=== PATIENT | female | born 1990 | race African-American/Black ===

== ENCOUNTER 2017-03-09 08:45 | Emergency (ER) | payer MEDICAID ==
[~2017-03-09] VITALS: Ht 160 cm; Wt 95.0 kg
[~2017-03-09 08:45] MED LIST: AMLO10 PO; ENOX40P SQ; ESCI20TA PO; LISI10 PO
[2017-03-09 08:46] VITALS: BP 165/82; PULSE 96; RESP 20; TEMP 98.9; O2SAT 99
[2017-03-09 09:01] VITALS: BP 143/88; PULSE 95; RESP 16; TEMP 98.9; O2SAT 98
--- NOTE | 2017-03-09 09:54 | PD ---
HPI Chief Complaint: GI Complaint Time Seen by Provider: 09:40 Travel History International Travel<30 days: No Contact w/Intl Traveler<30days: No Traveled to known affect area: No History of Present Illness HPI This is a 26-year-old female who 6 months , who presents today with complaints of migraine exacerbation with associated nausea. The patient denies any abdominal pain, pressure. The patient denies any dysuria, urgency, frequency. Patient states she has frequent migraine headaches. She states that she is not taking anything for the migraine because she is . She denies this being the worst headache of her life. She states that this is like her previous migraines. There is no photophobia. There is no thunderclap headache. There is no other associated symptoms other than the nausea. PFSH Past Medical History Anxiety: Yes Depression: Yes Cardiovascular Problems: Yes High Cholesterol: Yes Diminished Hearing: No Deep Vein Thrombosis: Yes (L LEG ) Headaches: Yes (See EMR) Hypertension: Yes Neurologic: Yes Psychiatric: Yes (Reported hx of depression and anxiety) Respiratory: Yes (BRONCHITIS CHILD) Immunizations Current: Yes Migraines: Yes Sleep Apnea: Yes Tetanus Vaccination: Unknown Influenza Vaccination: No ?: LMP: MAY 2016 : 3 Para: 2 Miscarriage: 0 : 0 Past Surgical History Section: Yes (x 2 ) Gynecologic Surgery: Yes Other Surgery: No (2 C-sections) Social History Alcohol Use: Yes (rarely) Tobacco Use: Yes (quit a year ago ) Substance Use: No Allergies-Medications (Allergen,Severity, Reaction): Coded Allergies: No Known Allergies (Verified , 03/09/17) Reported Meds & Prescriptions Reported Meds & Active Scripts Active Plus Iron 29-1 mg ( Vit-Iron Carbonyl) 1 Tab Tab 1 Tab PO DAILY Reglan (Metoclopramide HCl) 10 Mg Tab 10 Mg PO TIDAC Macrobid (Nitrofurantoin Monoh/Nitrofur Macro) 100 Mg Cap 100 Mg PO BID Review of Systems Except as stated in HPI: all other systems reviewed are Neg General / Constitutional: No: Fever, Chills Eyes: No: Diploplia, Blurred Vision HENT: Positive: Headaches, No: Lightheadedness (bifrontal), Neck Stiffness, Neck Pain Cardiovascular: No: Chest Pain or Discomfort, Palpitations Respiratory: No: Cough, Shortness of Breath Gastrointestinal: Positive: Nausea, No: Vomiting, Abdominal Pain Genitourinary: No: Urgency, Frequency, Dysuria Musculoskeletal: No: Weakness, Pain Neurologic: Positive: Headache (as above), No: Weakness, Dizziness Physical Exam Narrative GENERAL: Well-nourished, well-developed patient, resting comfortably in no acute distress. SKIN: Focused skin assessment warm/dry. HEAD: Normocephalic/atraumatic. EYES: No scleral icterus. No injection or drainage. ENT: Mucosa pink and slightly dry. NECK: Supple, trachea midline. CARDIOVASCULAR: Regular rate and rhythm without murmurs, gallops, or rubs. RESPIRATORY: Breath sounds equal bilaterally. No accessory muscle use. GASTROINTESTINAL: Abdomen soft, gravid. There is no rebound or guarding. MUSCULOSKELETAL: No cyanosis, or edema. BACK: Nontender without obvious deformity. No CVA tenderness. NEUROLOGICAL: Awake and alert. Cranial nerves II through XII intact. Motor and sensory grossly within normal limits. Five out of 5 muscle strength in all muscle groups. Normal speech. Data Data Last Documented VS Vital Signs Date Time Temp Pulse Resp B/P Pulse Ox O2 Delivery O2 Flow Rate FiO2 03/09/17 09:01 98.9 95 16 143/88 98 03/09/17 08:46 Room Air Orders Basic Metabolic Panel (Bmp) (03/09/17 09:47) Urinalysis - C+S If Indicated (03/09/17 09:47) Iv Access Insert/Monitor (03/09/17 09:47) Metoclopramide Inj (Reglan Inj) (03/09/17 10:00) Heart Tones (03/09/17 09:51) Sodium Chlor 0.9% 1000 Ml Inj (Ns 1000 M (03/09/17 10:30) Urine Culture (03/09/17 10:00) Nitrofurantoin Monohyd Macrocr (Macrobid (03/09/17 11:30) Labs Laboratory Tests Test 03/09/17 10:00 Urine Color YELLOW Urine Turbidity HAZY Urine pH 6.5 Urine Specific [place] 1.032 Urine Protein 100 mg/dL Urine Glucose (UA) NEG mg/dL Urine Ketones NEG mg/dL Urine Occult Blood SMALL Urine Nitrite NEG Urine Bilirubin NEG Urine Urobilinogen 2.0 MG/DL Urine Leukocyte Esterase LARGE Urine RBC 48 /hpf Urine WBC 181 /hpf Urine Squamous Epithelial 10 /hpf Cells Urine Bacteria MANY /hpf Urine Mucus FEW /lpf Microscopic Urinalysis Comment CULTURE INDICATED Sodium Level 137 MEQ/L Potassium Level 4.1 MEQ/L Chloride Level 105 MEQ/L Carbon Dioxide Level 25.0 MEQ/L Anion Gap 7 MEQ/L Blood Urea Nitrogen 7 MG/DL Creatinine 0.58 MG/DL Estimat Glomerular Filtration 153 ML/MIN Rate Random Glucose 93 MG/DL Calcium Level 8.6 MG/DL MDM Medical Decision Making Medical Screen Exam Complete: Yes Emergency Medical Condition: Yes Differential Diagnosis Migraine exacerbation versus dehydration versus hormone/ related nausea Narrative Course 26-year-old female who is 6 months , presents today with complaints of migraine exacerbation and nausea. The patient has a history of migraine headaches. As no change in character or quality. Checks reports it's better than it normally is. She's been given Reglan 10 mg I V times one dose. She's also been given 1 L normal saline I V times one dose. Urinalysis reveals cystitis. She'll be treated with Macrobid, first dose given here in the emergency department. She'll also be given a prescription for Reglan for her headaches. She is in skirts to drink plenty of fluids. She is also encouraged to return if she develops any fevers, chills abdominal pain, vaginal bleeding, or any other reason. Diagnosis Primary Impression: Cystitis Additional Impressions: Migraine headache Nausea 6 months Referrals: [facility] OB Scripts Vit-Iron Carbonyl ( Plus Iron 29-1 mg)1 Tab Tab1 Tab PO DAILY #30 TAB Ref 1 Prov:Suresh Schultz MD 03/09/17 Metoclopramide (Reglan)10 Mg Tab10 Mg PO TIDAC #20 TAB Ref 0 Prov:Suresh Schultz MD 03/09/17 Nitrofurantoin Monohydrate Macrocrystals (Macrobid)100 Mg [id number] Mg PO BID #14 CAP Ref 0 Prov:Suresh Schultz MD 03/09/17 Disposition: 01 DISCHARGE HOME Condition: Stable Suresh Schultz MD March 09, 2017 09:54
[2017-03-09] MEDS ORDERED: METOCLOPRAMIDE HCL 10 MG/2 ML VIAL IV PUSH ONE (10:00)
[2017-03-09 10:30] LABS: POTASSIUM 4.1 MEQ/L (3.5-5.1)
[2017-03-09] MEDS ORDERED: SODIUM CHLOR 0.9% 1000 ML INJ 1,000 ML IV ONE (10:30)
[2017-03-09 10:34] LABS: BACTERIA, URINE MANY /hpf; BLOOD, URINE SMALL (NEG); GLUCOSE,URINE NEG (NEG); KETONE, URINE NEG (NEG); MUCUS URINE FEW /lpf (OCC); NITRITE,URINE NEG (NEG); PH, URINE 6.5 (5.0-8.5); SQUAMOUS EPITHELIAL CELL URINE 10 /hpf (0-5); URINE COLOR YELLOW (YELLW/STRAW)
[2017-03-09 10:35] LABS: COMMENT (UR) CULTURE INDICATED; CULTURE IF INDICATED CULTURE INDICATED
[2017-03-09] MEDS ORDERED: REGL10TA5 PO (10:45)
[2017-03-09] MEDS ORDERED: MACR100C2 PO (10:45)
[2017-03-09] MEDS ORDERED: PREN29TA PO (11:10)
[2017-03-09] MEDS ORDERED: NITROFURANTOIN MONOHYD MACROCR 100 MG CAP PO ONE (11:30)
[2017-03-09 12:08] VITALS: BP 159/88
[2017-04-09] MEDS ORDERED: METR-1 PO (11:20)
[2017-04-14] MEDS ORDERED: AMOX500T PO (16:15)
== END 2017-03-09 12:05 | disposition home or self-care (01) ==
LOC: NEPC 08:45
DX: O23.12 Infections of bladder in pregnancy, second trimester (principal); I10 Essential (primary) hypertension; G47.30 Sleep apnea, unspecified; R11.0 Nausea
CPT/HCPCS: 80048; 81001; 86403; 87086; 96361; 96374; 99283; J2765; J7030

== ENCOUNTER 2017-04-23 15:16 | Inpatient (IN) | payer MEDICAID ==
[~2017-04-23] VITALS: Ht 160 cm; Wt 115.2 kg
[2017-04-23] VITALS (8 sets, daily range): BP systolic 129–178; BP diastolic 70–106; PULSE 73–83; RESP 20; TEMP 98.3
[~2017-04-23 15:16] MED LIST changes: -AMLO10 PO; +AMOX500T PO; -ENOX40P SQ; -ESCI20TA PO; -LISI10 PO; +METR-1 PO; +PREN29TA PO
[2017-04-23] MEDS: LACTATED RINGER'S 1000 ML INJ 1,000 ML IV SCH (16:25)
[2017-04-23] MEDS ORDERED: hydrALAZINE HCL 20 MG/ML VIAL IV PUSH PRN (16:30)
[2017-04-23] MEDS ORDERED: SODIUM CHLORIDE 0.9% FLUSH 5 ML FLUSH IV PRN (16:30)
[2017-04-23] MEDS ORDERED: ONDANSETRON HCL 4 MG/2 ML VIAL IV PRN (16:30)
[2017-04-23] MEDS ORDERED: ACETAMINOPHEN 325 MG TAB PO PRN (16:30)
--- NOTE | 2017-04-23 16:41 | PD ---
HPI Chief Complaint CTX, headache Date Seen: Apr 23, 2017 Time Seen: 16:30 Travel History International Travel<30 Days: No Contact w/Intl Traveler<30Days: No History of Present Illness HPI Patient is a 26 year old at 36 and 0/7 weeks gestation by approximate LMP, LAM 05/21/2017, who presents to the OB ED with abdominal pain and headache. She has a past medical history remarkable for hypertension in , migraines, RLE DVT, and possible sickle cell trait. She denies leakage of fluid, vaginal bleeding, and contractions. She feels baby moving regularly. She denies nausea, vomiting, diarrhea, fever, sick contacts, shortness of breath, calf pain, dizziness, and seeing spots. She was late to care with CFW, first office visit at 34 weeks. labs are remarkable for GBS positive. She had a UTI and Trichomonas diagnosed on routine workup, treated. She was noted to have a blood pressure elevated to 151/84 on initial OB visit on 04/16/17 and was given prescription for 24 hour urine protein which she did not complete. Her first was complicated by severe preeclampsia requiring emergency C -section at 27 weeks. Her second was complicated by LE DVT for which she received Lovenox until time of delivery at term via repeat . She has not taken any blood pressure medications or blood thinners during this . History Past Medical History Narrative Medical Migraines Chronic hypertension LE DVT in 2016 Obstetric History Obstetric History G1: 2010, 27 week emergency at [facility] for severe preeclampsia G2: 2015, 39 week repeat of a 6 pound female, complicated LE DVT, reportedly treated with Lovenox. Patient states she had repeat ultrasound which showed no DVT after G3: Current, late to care at 34 weeks Past Surgical History Narrative Surgical section 2 Family History Narrative Family History Multiple family members with heart disease and hypertension, blood clot in father Social History Alcohol Use: No Tobacco Use: No Substance Abuse: No Allergies-Medications (Allergen,Severity, Reaction): Coded Allergies: No Known Allergies (Verified , 04/23/17) Home Meds Active Scripts Amoxicillin 500 Mg [id number] Mg PO TID #30 TAB Ref 0 Prov:Tram Larry 04/14/17 Metronidazole (Flagyl)500 Mg [id number] Mg PO TID #21 TAB Ref 0 Prov:Trudi Fuchs 04/09/17 Vit-Iron Carbonyl ( Plus Iron 29-1 mg)1 Tab Tab1 Tab PO DAILY #30 TAB Ref 1 Prov:Suresh Schultz MD 03/09/17 Discontinued Scripts Metoclopramide (Reglan)10 Mg Tab10 Mg PO TIDAC #20 TAB Ref 0 Prov:Suresh Schultz MD 03/09/17 Review of Systems Except as stated in HPI: all other systems reviewed are Neg Physical Exam Narrative GENERAL: Well-nourished, well-developed obese female in no apparent distress. She states she has a worsening headache during exam. SKIN: Warm and dry. No rashes. HEAD: Normocephalic and atraumatic. EYES: No scleral icterus. No injection or drainage. ENT: No nasal drainage noted. Mucous membranes pink. Airway patent. NECK: Supple, trachea midline. No JVD. CARDIOVASCULAR: Regular rate and rhythm without murmurs, gallops, or rubs. RESPIRATORY: Breath sounds equal bilaterally. No accessory muscle use. ABDOMEN/GI: Abdomen obese, soft, non-tender, bowel sounds present, no rebound, no guarding GENITOURINARY: External Genitalia: intact and normal in appearance Cervix: 1-2/50/-3 Station: Vertex Presentation: Vertex Membranes: Intact Uterine Contractions: Irregular every 5 -8 FHT's: Category: 1 Baseline: 140 Reactive: 160 Variability: Moderate Decels: absent EXTREMITIES: No cyanosis or edema. BACK: Nontender without obvious deformity. No CVA tenderness. NEUROLOGICAL: Awake and alert. Motor and sensory grossly within normal limits. Five out of 5 muscle strength in all muscle groups. Normal speech. Reflexes 1+ bilaterally at the patella Data Data Vital Signs Reviewed: Yes (initial BP 154/84, repeat 155/91. 45 minutes later 178/106 with pulse 78. Initial temp 90 8.6F, respirations 16/m) Orders Vital Signs (Adult) .ON ADMISSION (04/23/17 16:09) ^ Labor Status (04/23/17 16:09) Urinalysis - C+S If Indicated (04/23/17 16:09) ^ Non Stress Test (04/23/17 16:09) ^ Hydration (04/23/17 16:09) Cbc No Diff, Includes Plts (04/23/17 16:09) Comprehensive Metabolic Panel (04/23/17 16:09) Uric Acid (04/23/17 16:09) Ob (2e) Additional Admit Info (04/23/17 16:23) Place In Observation (04/23/17 ) Code Status (04/23/17 16:25) Vital Signs (Adult) Q5MX4,Q15MX4,Q30MX2,Q1H (04/23/17 16:25) Resp Pulse Oximetry (04/23/17 ) Activity Bed Rest (04/23/17 16:25) Intake + Output Q1H (04/23/17 16:25) Notify Parameters (04/23/17 16:25) Heart CONTINUOUS (04/23/17 16:25) ^ Check Deep Tendon Reflexes Q1H (04/23/17 16:25) Diet Npo (04/23/17 Dinner) Lactated Ringer's 1000 Ml Inj (Lr 1000 M (04/23/17 16:25) Sodium Chloride 0.9% Flush (Ns Flush) (04/23/17 16:30) Sodium Chloride 0.9% Flush (Ns Flush) (04/23/17 21:00) Hydralazine Inj (Apresoline Inj) (04/23/17 16:30) Acetaminophen (Tylenol) (04/23/17 16:30) Ondansetron Inj (Zofran Inj) (04/23/17 16:30) MDM Medical Record Reviewed: Yes Narrative Course / MDM 26 year old at 36 and 0/7 weeks gestation, LAM 05/21/2017, who presents to the OB ED with hypertension, contractions, and worsening headache concerning for preeclampsia. We'll admit to observation for 24 hour urine protein and closer monitoring, as patient potentially will require delivery. Gestational Hypertension: Likely chronic hypertension possibly with superimposed preeclampsia Blood pressures elevated to 154/82 initially, with a repeat 178/106 Will initiate rule out for preeclampsia CBC, CMP, urinalysis, uric acid pending Procardia 20 mg by mouth 1 Strict I/O's Daily weights Will assess labs, if preeclampsia will start magnesium, Arce, proceed to delivery via repeat Of note, patient had a consult and was scheduled for a repeat C- section on May 16 Patient was counseled thoroughly on plan of care and is agreeable Intrauterine : Category 1 tracing Contractions every 5-7 minutes noted on monitor Cervix is 12/50%/-3 OB care is with CPAP FW the patient is late to care Will obtain IV Abdominal Pain: Possibly related to contractions, will monitor We'll give Tylenol 650 mg by mouth PRN not to exceed maximum dose GBS status: POSITIVE Start IV penicillin per protocol if admitted for labor Will give preop antibiotics for once indicated History of coagulopathy complicating : Not currently on any treatment Will monitor Will get CBC as above Platelets are abnormal, will likely follow up with coag profile History of migraines: Will monitor Tylenol when necessary as above Monitoring for worsening symptoms as this can be due to preeclampsia Seen and discussed with Zina Rodriguez MD R1 Apr 23, 2017 16:41
[2017-04-23 16:43] LABS: BACTERIA, URINE RARE /hpf; BLOOD, URINE NEG (NEG); COMMENT (UR) CULT NOT INDICATED; CULTURE IF INDICATED CULT NOT INDICATED; GLUCOSE,URINE NEG (NEG); HYALINE CAST, URINE 1 /lpf (RARE); KETONE, URINE NEG (NEG); MUCUS URINE FEW /lpf (OCC); NITRITE,URINE NEG (NEG); PH, URINE 6.5 (5.0-8.5); SQUAMOUS EPITHELIAL CELL URINE 10 /hpf (0-5); URINE COLOR YELLOW (YELLW/STRAW)
[2017-04-23 16:45] LABS: MEAN CELL VOLUME 73.3 FL (80.0-100.0); MEAN CORPUSCULAR HEMOGLOBIN 23.8 PG (27.0-34.0); MEAN CORPUSCULAR HGB CONC 32.5 % (32.0-36.0); PLATELET COUNT 230 TH/MM3 (150-450); RED BLOOD COUNT 4.64 MIL/MM3 (4.00-5.30); RED CELL DISTRIBUTION WIDTH 15.5 % (11.6-17.2); REVIEW FLAG FINAL; WHITE BLOOD COUNT 7.4 TH/MM3 (4.0-11.0)
[2017-04-23] MEDS ORDERED: NIFEdipine 10 MG CAP PO ONE (16:45)
[2017-04-23 17:06] LABS: ANION GAP 7 MEQ/L (5-15); AST (GOT) 12 U/L (15-37); BICARBONATE 23.6 MEQ/L (21.0-32.0); BLOOD UREA NITROGEN 9 MG/DL (7-18); CHLORIDE 104 MEQ/L (98-107); GLOMERULAR FILTRATION RATE 112 ML/MIN (>89); POTASSIUM 4.2 MEQ/L (3.5-5.1); SODIUM (NA) 135 MEQ/L (136-145)
[2017-04-23 17:07] LABS: ALT (GPT) 14 U/L (10-53); URIC ACID 4.8 MG/DL (2.6-6.0)
[2017-04-23 17:08] LABS: AMPHETAMINE, URINE NEG (NEG); BARBITURATES, URINE NEG (NEG); COCAINE, URINE NEG (NEG)
[2017-04-23 17:10] LABS: ALKALINE PHOSPHATASE 161 U/L (45-117); TOTAL BILIRUBIN ADULT 0.2 MG/DL (0.2-1.0)
--- NOTE | 2017-04-23 17:24 | HHI.HP ---
History & Physical H&P Patient is a 26-year-old black female 36 weeks' gestation previous C- section 2 with poor gestational criteria who [facility] for elevated blood pressures, she comes in OB ED with complaints of abdominal pain. And also has started developing a worsening frontal headache, denies visual changes swelling or right upper quadrant pain. Baby is active heart rate tracing is reactive and she is not caryn now. Blood pressure here in OB ED is 150s/ 90s on several occasions 150 /80s. Patient states she has a history of hypertension when she is and has had hypertension in between pregnancies. She had a with first baby at 27 weeks for severe preeclampsia, second she had hypertension with was sectioned term. Patient states that she took blood pressure medication at one point in her life that she really can't remember the medicine. Patient also has a history in her last of a DVT in her leg and was on aspirin and Lovenox during that . This she's not really taking anything , she's had no care until 2 weeks ago when she started going to the clinic prior to that no care to speak of. She does have a couple of visits of care on the chart here with her and it did show 1-2+ protein in her urine. Her blood pressure and in mid March was 130 / 80s and last week was 150 / 80s. Patient is scheduled for a repeat on 05/18/17 and she is scheduled for a OB diagnostic ultrasound tomorrow. Impression--approximately 36 week gestation previous 2 with poor gestational criteria now with the chronic hypertension and possibly superimposed preeclampsia with at least one of severe feature being her frontal headache, history of DVT, history of severe preeclampsia requiring delivery at 27 weeks by in her first Plan-plan to admit the patient for observation and collect 24-hour urine protein and remaining preeclampsia lab work tomorrow morning lab OB diagnostic ultrasound for weight and BPP, monitor blood pressures closely, evaluate proteinuria on dipstick and if it is 4+ then likely to proceed with delivery tonight if any of the other lab is ominous and may force our hand to deliver tonight otherwise observe plan ultrasound tomorrow and possibly consider amniocentesis for lung maturity Brenden Avila II, MD Apr 23, 2017 17:24
[2017-04-23] MEDS: SODIUM CHLORIDE 0.9% FLUSH 5 ML FLUSH IV SCH (21:00)
[2017-04-24] VITALS (13 sets, daily range): BP systolic 130–146; BP diastolic 70–93; PULSE 63–88; RESP 17–20; TEMP 97–98.5; O2SAT 96–99
[2017-04-24] MEDS: LACTATED RINGER'S 1000 ML INJ 1,000 ML IV SCH ×3 (02:00→23:37)
[2017-04-24] MEDS ORDERED: TERBUTALINE INJ 1 MG/ML AMP ONE (03:35)
[2017-04-24] MEDS ORDERED: TERBUTALINE INJ 1 MG/ML AMP SQ ONE (07:00)
[2017-04-24] MEDS: BETAMETHASONE SOD PHOS/ACETATE SUSP 30 MG/5 ML VIAL IM SCH ×2 (07:31→10:26)
[2017-04-24] MEDS: SODIUM CHLORIDE 0.9% FLUSH 5 ML FLUSH IV SCH (07:32)
--- NOTE | 2017-04-24 08:04 | PD.OB.ANTE ---
Subjective Interval History Hospital day 2 Patient is 36 week intrauterine with chronic hypertension and mild superimposed preeclampsia is now gone into labor during. Her 24-hour urine collection for protein, cervix is 5 cm 90% -2 vertex, she caryn every 8 minutes with great deal of pain she's received several doses of fentanyl over the night for this. heart rate tracing is reactive with good variability accelerations she has had early decelerations with contractions. Plan this patient is a 2 for repeat and tubal ligation her tubal papers are signed Objective Vital Signs Vital Signs Date Time Temp Pulse Resp B/P Pulse Ox O2 Delivery O2 Flow Rate FiO2 04/24/17 07:31 78 133/77 04/24/17 07:30 98.0 20 04/24/17 04:20 20 04/24/17 04:20 79 134/78 04/24/17 00:00 98.3 04/23/17 23:57 79 20 136/70 04/23/17 21:07 82 129/72 04/23/17 19:23 73 156/72 04/23/17 19:23 98.3 20 04/23/17 19:15 18 04/23/17 18:24 77 135/76 04/23/17 17:01 83 137/81 04/23/17 16:57 73 150/79 04/23/17 16:50 76 152/88 04/23/17 16:31 78 178/106 Lab & Micro Results Test 04/23/17 16:08 White Blood Count 7.4 TH/MM3 Red Blood Count 4.64 MIL/MM3 Hemoglobin 11.0 GM/DL Hematocrit 34.0 % Mean Corpuscular Volume 73.3 FL Mean Corpuscular Hemoglobin 23.8 PG Mean Corpuscular Hemoglobin 32.5 % Concent Red Cell Distribution Width 15.5 % Platelet Count 230 TH/MM3 Mean Platelet Volume 8.2 FL Urine Color YELLOW Urine Turbidity HAZY Urine pH 6.5 Urine Specific [place] 1.031 Urine Protein 30 mg/dL Urine Glucose (UA) NEG mg/dL Urine Ketones NEG mg/dL Urine Occult Blood NEG Urine Nitrite NEG Urine Bilirubin NEG Urine Urobilinogen LESS THAN 2.0 MG/DL Urine Leukocyte Esterase LARGE Urine RBC 1 /hpf Urine WBC 5 /hpf Urine Squamous Epithelial 10 /hpf Cells Urine Bacteria RARE /hpf Urine Hyaline Casts 1 /lpf Urine Mucus FEW /lpf Microscopic Urinalysis Comment CULT NOT INDICATED Sodium Level 135 MEQ/L Potassium Level 4.2 MEQ/L Chloride Level 104 MEQ/L Carbon Dioxide Level 23.6 MEQ/L Anion Gap 7 MEQ/L Blood Urea Nitrogen 9 MG/DL Creatinine 0.76 MG/DL Estimat Glomerular Filtration 112 ML/MIN Rate Random Glucose 77 MG/DL Uric Acid 4.8 MG/DL Calcium Level 9.5 MG/DL Total Bilirubin 0.2 MG/DL Aspartate Amino Transf 12 U/L (AST/SGOT) Alanine Aminotransferase 14 U/L (ALT/SGPT) Alkaline Phosphatase 161 U/L Total Protein 7.1 GM/DL Albumin 2.6 GM/DL Urine Opiates Screen NEG Urine Barbiturates Screen NEG Urine Amphetamines Screen NEG Urine Benzodiazepines Screen NEG Urine Cocaine Screen NEG Urine Cannabinoids Screen POS Blood Type A POSITIVE Antibody Screen NEGATIVE Physical Exam GENERAL: Well-nourished, well-developed patient. CARDIOVASCULAR: Regular rate and rhythm without murmurs, gallops, or rubs. RESPIRATORY: Breath sounds equal bilaterally. No accessory muscle use. ABDOMEN/GI: Abdomen soft, non-tender. Fundus: [-] GENITOURINARY: External Genitalia: intact and normal in appearance Cervix: [-] Dilatation: [-] Effacement: [-] Station: [-] Presentation: [-] Membranes: [-] Uterine Contractions: [-] FHT's: Category: [-] Baseline: [-] Reactive: [-] Variability: [-] Decels: [-] EXTREMITIES: No cyanosis or edema, non-tender, without signs of DVT. Assessment and Plan Assessment and Plan 26 year old at 36 and 0/7 weeks gestation, LAM 05/21/2017, who presents to the OB ED with hypertension, contractions, and worsening headache concerning for preeclampsia. We'll admit to observation for 24 hour urine protein and closer monitoring, as patient potentially will require delivery. Gestational Hypertension: Likely chronic hypertension possibly with superimposed preeclampsia Blood pressures elevated to 154/82 initially, with a repeat 178/106 Will initiate rule out for preeclampsia CBC, CMP, urinalysis, uric acid pending Procardia 20 mg by mouth 1 Strict I/O's Daily weights Will assess labs, if preeclampsia will start magnesium, Arce, proceed to delivery via repeat Of note, patient had a consult and was scheduled for a repeat C- section on May 16 Patient was counseled thoroughly on plan of care and is agreeable Intrauterine : Category 1 tracing Contractions every 5-7 minutes noted on monitor Cervix is 12/50%/-3 OB care is with CPAP FW the patient is late to care Will obtain IV Abdominal Pain: Possibly related to contractions, will monitor We'll give Tylenol 650 mg by mouth PRN not to exceed maximum dose GBS status: POSITIVE Start IV penicillin per protocol if admitted for labor Will give preop antibiotics for once indicated History of coagulopathy complicating : Not currently on any treatment Will monitor Will get CBC as above Platelets are abnormal, will likely follow up with coag profile History of migraines: Will monitor Tylenol when necessary as above Monitoring for worsening symptoms as this can be due to preeclampsia Seen and discussed with Dr. Austin Avila,Brenden Polk II, MD Apr 24, 2017 08:04
[2017-04-24] MEDS ORDERED: LACTATED RINGER'S 1000 ML INJ 1,000 ML IV ONE (08:11)
[2017-04-24] MEDS ORDERED: OXYTOCIN 10 UNIT/ML AMP ONE (08:22)
[2017-04-24] MEDS ORDERED: LACTATED RINGER'S 1000 ML INJ 1,000 ML IV SCH (08:41)
[2017-04-24] MEDS ORDERED: PANTOPRAZOLE SODIUM 40 MG VIAL IV SCH (09:00)
[2017-04-24] MEDS ORDERED: ceFAZolin 2 GM PREMIX 50 ML IV SCH (09:15)
[2017-04-24] MEDS ORDERED: CITRIC ACID-SODIUM CITRATE LIQ 30 ML UDC PO SCH (09:45)
[2017-04-24] MEDS ORDERED: MORPHINE SULFATE PF 5 MG/10 ML VIAL ONE (10:44)
[2017-04-24] MEDS ORDERED: fentaNYL CITRATE 250 MCG/5 ML AMP ONE (10:44)
[2017-04-24] MEDS ORDERED: oxyCODONE/ACETAMINOPHEN 5 MG/325 MG TAB PO PRN ×2 (10:45)
[2017-04-24] MEDS ORDERED: ACETAMINOPHEN 325 MG TAB PO PRN (10:45)
[2017-04-24] MEDS ORDERED: ONDANSETRON HCL 4 MG/2 ML VIAL IV PUSH PRN (10:45)
[2017-04-24] MEDS ORDERED: SIMETHICONE 80 MG CHEWABLE TAB PO PRN (10:45)
[2017-04-24] MEDS ORDERED: OXYTOCIN 30 UNITS-500ML PREMIX 500 ML IV ONE (10:45)
[2017-04-24] MEDS ORDERED: DOCUSATE SODIUM 50 MG/SENNA 8.6 MG TAB PO PRN (10:45)
[2017-04-24] MEDS ORDERED: SODIUM CHLORIDE 0.9% FLUSH 10 ML FLUSH IV FLUSH PRN (10:45)
[2017-04-24] MEDS ORDERED: ZOLPIDEM TARTRATE 5 MG TAB PO PRN (10:45)
[2017-04-24] MEDS ORDERED: OXYTOCIN 30 UNITS-500ML PREMIX 500 ML ONE (11:40)
[2017-04-24] MEDS ORDERED: EPIDURAL-DIPHENHYDRAMINE HCL 50 MG/ML VIAL IV PUSH PRN (13:00)
[2017-04-24] MEDS ORDERED: EPIDURAL-DO NOT ADMINISTER ANTICOAGULANTS PRN (13:00)
[2017-04-24] MEDS ORDERED: EPIDURAL-NO SYSTEMIC NARCOTICS PRN (13:00)
[2017-04-24] MEDS ORDERED: EPIDURAL-NALOXONE HCL 0.4 MG/ML AMP IV PRN (13:00)
[2017-04-24] MEDS ORDERED: EPIDURAL-DIPHENHYDRAMINE HCL 50 MG CAP PO PRN (13:00)
[2017-04-24 14:24] LABS: AUTOMATED NEUTROPHIL # 13.8 TH/MM3 (1.8-7.7); BASOPHIL # 0.1 TH/MM3 (0-0.2); BASOPHIL % 0.4 % (0.0-2.0); HEMATOCRIT 36.7 % (35.0-46.0); HEMO FLAGS DIFF FINAL; LYMPH % 6.2 % (9.0-44.0); LYMPHOCYTE # 0.9 TH/MM3 (1.0-4.8); MEAN CELL VOLUME 73.3 FL (80.0-100.0); MEAN CORPUSCULAR HEMOGLOBIN 23.9 PG (27.0-34.0); MEAN CORPUSCULAR HGB CONC 32.5 % (32.0-36.0); MONO % 2.1 % (0.0-8.0); NEUT % 91.3 % (16.0-70.0); PLATELET COUNT 215 TH/MM3 (150-450); RED BLOOD COUNT 5.01 MIL/MM3 (4.00-5.30); RED CELL DISTRIBUTION WIDTH 15.6 % (11.6-17.2); WHITE BLOOD COUNT 15.1 TH/MM3 (4.0-11.0)
[2017-04-24] MEDS ORDERED: KETOROLAC TROMETHAMINE 60 MG/2 ML (IM) VIAL IM PRN (17:00)
[2017-04-24] MEDS ORDERED: OXYTOCIN 30 UNITS-500ML PREMIX 500 ML IV PRN (20:45)
[2017-04-24] MEDS ORDERED: SODIUM CHLORIDE 0.9% FLUSH 10 ML FLUSH IV FLUSH SCH (21:00)
[2017-04-25] MEDS: IBUPROFEN 600 MG TAB PO PRN ×2 (00:41→20:07)
[2017-04-25 03:26] VITALS: BP 118/84; PULSE 80; RESP 18; TEMP 97
[2017-04-25 05:39] LABS: AUTOMATED NEUTROPHIL # 13.7 TH/MM3 (1.8-7.7); BASOPHIL % 0.2 % (0.0-2.0); HEMATOCRIT 32.2 % (35.0-46.0); HEMO FLAGS DIFF FINAL; LYMPH % 8.2 % (9.0-44.0); LYMPHOCYTE # 1.4 TH/MM3 (1.0-4.8); MEAN CELL VOLUME 74.4 FL (80.0-100.0); MEAN CORPUSCULAR HEMOGLOBIN 23.8 PG (27.0-34.0); MEAN CORPUSCULAR HGB CONC 31.9 % (32.0-36.0); MONO % 9.5 % (0.0-8.0); NEUT % 82.1 % (16.0-70.0); PLATELET COUNT 212 TH/MM3 (150-450); RED BLOOD COUNT 4.32 MIL/MM3 (4.00-5.30); RED CELL DISTRIBUTION WIDTH 15.6 % (11.6-17.2); WHITE BLOOD COUNT 16.7 TH/MM3 (4.0-11.0)
--- NOTE | 2017-04-25 05:55 | HHI.OB ---
Subjective Remarks No acute issues overnight. Vitals are stable, patient remains afebrile. Blood pressures have been ranging 1:81160/7090s. Patient is feeling well overall. She states she feels better than her last 2 C-sections. She is ambulating, voiding and stooling without difficulty. Vaginal bleeding is decreasing. She is bonding well with infant. Objective Vitals/I&O Vital Signs Date Time Temp Pulse Resp B/P Pulse Ox O2 Delivery O2 Flow Rate FiO2 04/25/17 03:26 118/84 04/25/17 03:26 97.0 80 18 04/24/17 23:37 98.4 18 04/24/17 23:37 63 146/93 04/24/17 20:20 98.1 20 97 04/24/17 20:20 71 136/80 04/24/17 15:39 72 20 130/76 04/24/17 15:39 98.5 04/24/17 12:20 98.4 68 18 133/79 04/24/17 11:48 97.8 04/24/17 11:48 71 19 144/82 99 04/24/17 11:30 88 19 96 04/24/17 11:30 138/76 04/24/17 11:15 76 19 139/73 98 04/24/17 11:01 73 19 140/70 98 04/24/17 10:45 77 17 138/71 98 04/24/17 10:45 97.0 04/24/17 07:31 78 133/77 04/24/17 07:30 98.0 20 Result Diagram: 04/25/17 0455 04/23/17 1608 Objective Remarks GENERAL: Well-nourished, well-developed patient. CARDIOVASCULAR: Regular rate and rhythm without murmurs, gallops, or rubs. RESPIRATORY: Breath sounds equal bilaterally. No accessory muscle use. ABDOMEN/GI: Abdomen soft, non-tender, bowel sounds present. Incision: Clean, dry and intact. Fundus: Firm, non-tender at umbilicus. GENITOURINARY: Light to moderate bleeding. EXTREMITIES: No cyanosis or edema, non-tender, without signs of DVT. Medications and IVs Current Medications Medications (Trade) Dose Ordered Sig/Alka Route Start Time Stop Time Status Last Admin Betamethasone Acet/Betameth SodPhos 12 mg 12 mg Q24H IM 04/24/17 07:15 04/25/17 07:16 04/24/17 07:31 (Lr 1000 ml Inj) 1,000 ml @ 100 mls/hr Q10H IV 04/24/17 15:37 04/25/17 11:36 04/24/17 23:37 (NS Flush) 2 ml BID IV FLUSH 04/24/17 21:00 04/24/17 21:00 (NS Flush) 2 ml UNSCH PRN IV FLUSH 04/24/17 10:45 (Mylicon Chew) 80 mg QID PRN PO 04/24/17 10:45 (Tylenol) 650 mg Q6H PRN PO 04/24/17 10:45 (Motrin) 600 mg Q6H PRN PO 04/24/17 10:45 04/25/17 00:41 (Percocet 5-325 Mg) 1 tab Q4H PRN PO 04/24/17 10:45 (Percocet 5-325 Mg) 2 tab Q4H PRN PO 04/24/17 10:45 (Shannon-Colace) 2 tab Q12H PRN PO 04/24/17 10:45 04/25/17 00:41 (Ambien) 5 mg HS PRN PO 04/24/17 10:45 (M-M-R Ii Inj) 0.5 ml ONCE ONCE SQ 04/25/17 16:00 04/25/17 16:01 (Boostrix Inj) 0.5 ml ONCE ONCE IM 04/25/17 16:00 04/25/17 16:01 (Zofran Inj) 4 mg Q6H PRN IV PUSH 04/24/17 10:45 Miscellaneous Information NO SYSTEMIC NARCOTICS TO BE GIVEN FO... UNSCH PRN .XX 04/24/17 13:00 04/25/17 12:59 (Narcan Inj) 0.4 mg UNSCH PRN IV 04/24/17 13:00 04/25/17 12:59 (Benadryl Inj) 25 mg Q6H PRN IV PUSH 04/24/17 13:00 04/25/17 12:59 (Benadryl) 50 mg Q6H PRN PO 04/24/17 13:00 04/25/17 12:59 04/25/17 00:41 Miscellaneous Information ALL NURSING DEPARTMENTS UNSCH PRN .XX 04/24/17 13:00 04/25/17 12:59 (Toradol Inj) 30 mg Q6H PRN IM 04/24/17 17:00 04/29/17 11:01 04/24/17 17:16 Assessment/Plan Assessment and Plan 26 y/o female who is POD# 1 s/p . -Continue routine care. - Hgb stable at 10.3 -Percocet and Motrin PRN pain. -Encouraged OOB. Advised pelvic rest for 6 wks. Will need a f/u appt. in 1 wk for incision check. -Re: ctrl, she is s/p bilateral tubal ligation. -D/c in 1-2 more days. mel Ocampo,Naye Rahman MD R2 Apr 25, 2017 05:55
[2017-04-25 08:00] VITALS: BP 143/78; PULSE 70; RESP 20; TEMP 98.2
[2017-04-25 14:30] VITALS: BP 121/75; PULSE 76; RESP 20; TEMP 97.8
[2017-04-25] MEDS ORDERED: DIPHTH/TETANUS/ACEL PERTUSSIS (BOOSTER) 0.5 ML VIAL/PFS IM ONE (16:00)
[2017-04-25] MEDS ORDERED: MEASLES, MUMPS, RUBELLA VACCINE 0.5 ML VIAL SQ ONE (16:00)
--- NOTE | 2017-04-25 17:08 | MP ---
cc: GOLDIE AVILA MD DATE OF SURGERY 04/24/17 PREOPERATIVE DIAGNOSIS 36 weeks intrauterine , previous section in labor refuses vaginal after section. Chronic hypertension, superimposed preeclampsia. POSTOPERATIVE DIAGNOSIS 36 weeks intrauterine , previous section in labor refuses vaginal after section. Chronic hypertension, superimposed preeclampsia. OPERATION Repeat low transverse section. SURGEON Jonny Avila MD CARVER HAND Dr. Ocampo, [facility] ANESTHESIA Epidural. PREOPERATIVE NOTE The patient is a 26-year-old black female, G3, P2, previous section times two with chronic hypertension and superimposed preeclampsia. Presented with contractions and actually went into labor and achieved a cervical dilation of 5 cm, 90%. The patient refused vaginal after section and so she was prepped for surgery for delivery via section. PROCEDURE DETAILS The patient was taken to the operating room and placed supine position on the operating table. Adequate epidural anesthesia administered. She was prepped and draped. The pannus retracted back and stabilized and then the Pfannenstiel incision was used, carried to the fascia sharply. The fascia dissected off the rectus muscle with bovie cautery and then the peritoneal cavity entered sharply. The incision was extended superiorly and inferiorly and stretched open. The bladder blade placed ___ incision and the visceral peritoneum reflected off the lower uterine segment and placed on the bladder blade. A transverse hysterotomy is made and extended bluntly bilaterally. A male was delivered, weight 6 pounds 6 oz, 8, 9. There were no complications of the delivery. Cord gas obtained. Cord blood obtained. Placenta was manually extracted and sent to pathology. The uterus exteriorized. The hysterotomy closed in a running layer of 0 Chromic followed by imbricating suture of same. Hemostasis was achieved with several stick ties. We could see from examining the uterus she had her first section was a classical via the fundus. And that was at 27 weeks at a stat situation. The ovaries exhibited bilateral theca lutein cysts about 4 cm on each side and these were drained with Bovie into those cysts and clear straw colored drained out. The patient's tubal was then done with the left tube elevated, hemostat passed through the mesosalpinx. Two sutures brought through that rent and the salpinx and the tube was tied for and aft in the innervating segment, removed with Metzenbaums scissors and sent to pathology. Same was done to the opposite site without difficulty. Hemostasis was achieved. The uterus was placed in the peritoneal cavity. The rectus muscle reapproximated with stick ties of chromic. Fascia closed in a running layer 0 Vicryl. Subcutaneous tissue was reapproximated in interrupted stick ties of 3-0 plain gut. Skin closed with 3-0 Monocryl subcuticular and a fresh dressing applied with Steri-Strips. Estimated blood loss 500 cc. No complications. Sponge, needle counts correct times two. The patient taken to the recovery room in stable condition. MD YESSI Royal/MAYO /11:02 AM /4:57 PM
[2017-04-25 20:30] VITALS: BP 121/76; PULSE 91; RESP 18; TEMP 98
[2017-04-26] MEDS: IBUPROFEN 600 MG TAB PO PRN ×2 (03:04→15:27)
[2017-04-26 08:00] VITALS: BP 137/91; PULSE 72; RESP 18; TEMP 98.3
--- NOTE | 2017-04-26 08:33 | HHI.OB ---
Subjective Post Operative Day: 2 Remarks Postoperative day #2. AFVSS overnight. Slightly elevated blood pressure at 137/ 91. Pain well-controlled. Incision clean, dry, and intact, not draining. Decreased lochia. She is feeding the baby via bottle. Appetite good. No nausea or vomiting. Positive flatus. No bowel movement. Denies fever, chills, cough, shortness of breath, chest pain, and calf pain. Otherwise, she is doing well this morning and has no other complaints. (EkoPadma MD R1) Remarks Patient seen and evaluated with resident under direct supervision, agree with assessment and plan. (Hernán Sainz MD) Objective Vitals/I&O Vital Signs Date Time Temp Pulse Resp B/P Pulse Ox O2 Delivery O2 Flow Rate FiO2 04/25/17 20:30 98.0 91 18 121/76 04/25/17 14:30 97.8 76 20 04/25/17 14:30 121/75 (EkoPadma MD R1) Result Diagram: 04/25/17 0455 04/23/17 1608 Objective Remarks GENERAL: Well-nourished, well-developed patient. CARDIOVASCULAR: Regular rate and rhythm without murmurs, gallops, or rubs. RESPIRATORY: Breath sounds equal bilaterally. No accessory muscle use. ABDOMEN/GI: Abdomen soft, non-tender, bowel sounds present. Incision: Clean, dry and intact. Fundus: Firm, non-tender below umbilicus. GENITOURINARY: Light to moderate bleeding. EXTREMITIES: No cyanosis or edema, non-tender, without signs of DVT. Medications and IVs Current Medications Medications (Trade) Dose Ordered Sig/Alka Route Start Time Stop Time Status Last Admin (NS Flush) 2 ml BID IV FLUSH 04/24/17 21:00 04/24/17 21:00 (NS Flush) 2 ml UNSCH PRN IV FLUSH 04/24/17 10:45 (Mylicon Chew) 80 mg QID PRN PO 04/24/17 10:45 04/25/17 20:07 (Tylenol) 650 mg Q6H PRN PO 04/24/17 10:45 (Motrin) 600 mg Q6H PRN PO 04/24/17 10:45 04/26/17 03:04 (Percocet 5-325 Mg) 1 tab Q4H PRN PO 04/24/17 10:45 (Percocet 5-325 Mg) 2 tab Q4H PRN PO 04/24/17 10:45 (Shannon-Colace) 2 tab Q12H PRN PO 04/24/17 10:45 04/25/17 00:41 (Ambien) 5 mg HS PRN PO 04/24/17 10:45 (Zofran Inj) 4 mg Q6H PRN IV PUSH 04/24/17 10:45 (Toradol Inj) 30 mg Q6H PRN IM 04/24/17 17:00 04/29/17 11:01 04/24/17 17:16 (Padma Hanson MD R1) Assessment/Plan Assessment and Plan 26 y/o female who is POD#2 s/p . -Continue routine care. - Hgb stable at 10.3 -Percocet and Motrin PRN pain. -Encouraged OOB. Advised pelvic rest for 6 wks. Will need a f/u appt. in 1 wk for incision check. -Re: ctrl, she is s/p bilateral tubal ligation. -D/c in [address] Alfredo Discharge Planning Discharge home tomorrow (Padma Hanson MD R1) Padma Hanson MD R1 Apr 26, 2017 08:32 Hernán Sainz MD Apr 26, 2017 09:11
[2017-04-26] MEDS ORDERED: IBUP-232 PO (12:44)
--- NOTE | 2017-04-26 12:46 | HHI.DCPOC ---
Discharge Care Plan Diagnosis: (1) delivery delivered Report Symptoms to Your Doctor -Temperature above 100.5 degrees -Redness, of incision or excessive or foul smelling drainage -Unusual pain or calf pain -Increased vaginal bleeding -Painful or difficulty urinating -Feelings of extreme sadness or anxiety after 2 weeks Goals to Promote Your Health * To prevent worsening of your condition and complications * To maintain your health at the optimal level Directions to Meet Your Goals Take your medications as prescribed Follow your dietary instruction Follow activity as directed Ensure plenty of rest for recovery Drink fluids for hydration Keep your appointments as scheduled Take your immunizations and boosters as scheduled If your symptoms worsen call your PCP, if no PCP go to Urgent Care Center or Emergency Room Smoking is Dangerous to Your Health. Avoid second hand smoke Call the 24-hour crisis hotline for domestic abuse at Padma Hanson MD R1 Apr 26, 2017 12:45
[2017-04-30 07:29] LABS: BATH SALTS (MDPV) UR NEG (NEG); ECSTASY (MDMA) UR NEG (NEG); GABAPENTIN UR NEG (NEG); HEROIN (6-ACETYLMORPHINE) UR NEG (NEG); HYDROMORPHONE U NEG (NEG); K2 SPICE UR NEG (NEG); OBMETHADONE UR NEG (NEG); OXYCODONE (PERCODAN) NEG (NEG); PHENCYCLIDINE URINE NEG (NEG)
== END 2017-04-26 17:24 | disposition home or self-care (01) | DRG 765 ==
LOC: HOBED 15:16 → H2EA 16:23 → OBSVTOIN 04-24 08:15 → H1EA 04-24 12:09
PROVIDERS: ADMIT Obstetrics & Gynecology Maternal & Fetal Medicine; ATTEND Obstetrics & Gynecology Maternal & Fetal Medicine
PROC: 10D00Z1 Extraction of Products of Conception, Low, Open Approach (ICD-10-PCS; principal; 2017-04-24)
PROC: 0UB70ZZ Excision of Bilateral Fallopian Tubes, Open Approach (ICD-10-PCS; 2017-04-24)
PROC: 0U920ZZ Drainage of Bilateral Ovaries, Open Approach (ICD-10-PCS; 2017-04-24)
DX: O11.3 Pre-existing hypertension with pre-eclampsia, third trimester (principal); Z68.42 Body mass index [BMI] 45.0-49.9, adult; O99.213 Obesity complicating pregnancy, third trimester; O34.219 Maternal care for unspecified type scar from previous cesarean delivery; O09.33 Supervision of pregnancy with insufficient antenatal care, third trimester; O99.824 Streptococcus B carrier state complicating childbirth; O26.893 Other specified pregnancy related conditions, third trimester; N83.12 Corpus luteum cyst of left ovary; N83.11 Corpus luteum cyst of right ovary; Z37.0 Single live birth; Z3A.36 36 weeks gestation of pregnancy; Z30.2 Encounter for sterilization; Z86.718 Personal history of other venous thrombosis and embolism
CPT/HCPCS: 59025; 80053; 80307; 81001; 84550; 85025; 85027; 86850; 86900; 86901; 88302; 88307; 90707; 90715; 99285; G0378; G0481; J0690; J0702; J1885; J2274; J2590; J3010; J3105; J7120; Q0163

== ENCOUNTER 2017-04-29 21:16 | Emergency (ER) | payer MEDICAID ==
[~2017-04-29] VITALS: Ht 160 cm; Wt 120.0 kg
[~2017-04-29 21:16] MED LIST changes: -AMOX500T PO; +IBUP-232 PO; -METR-1 PO
[2017-04-29 21:18] VITALS: BP 164/83; PULSE 111; RESP 16; TEMP 98.3; O2SAT 98
== END 2017-04-29 23:31 | disposition left against medical advice (07) ==
LOC: NED 21:16
DX: R10.9 Unspecified abdominal pain (principal); Z53.29 Procedure and treatment not carried out because of patient's decision for other reasons
CPT/HCPCS: 99281

== ENCOUNTER 2018-01-12 12:23 | Emergency (ER) | payer MEDICAID ==
[2018-01-12 13:04] VITALS: BP 183/87; PULSE 85; RESP 19; TEMP 99.1; O2SAT 99
[2018-01-12 15:19] LABS: AUTOMATED NEUTROPHIL # 11.2 TH/MM3 (1.8-7.7); BASOPHIL # 0.1 TH/MM3 (0-0.2); BASOPHIL % 0.4 % (0.0-2.0); EOSINOPHIL % 0.3 % (0.0-4.0); HEMATOCRIT 38.8 % (35.0-46.0); HEMOGLOBIN 12.4 GM/DL (11.6-15.3); LYMPH % 10.8 % (9.0-44.0); LYMPHOCYTE # 1.5 TH/MM3 (1.0-4.8); MEAN CELL VOLUME 73.8 FL (80.0-100.0); MEAN CORPUSCULAR HEMOGLOBIN 23.5 PG (27.0-34.0); MEAN CORPUSCULAR HGB CONC 31.8 % (32.0-36.0); MEAN PLATELET VOLUME 7.4 FL (7.0-11.0); MONO % 7.2 % (0.0-8.0); NEUT % 81.3 % (16.0-70.0); PLATELET COUNT 257 TH/MM3 (150-450); RED BLOOD COUNT 5.26 MIL/MM3 (4.00-5.30); RED CELL DISTRIBUTION WIDTH 16.6 % (11.6-17.2); WHITE BLOOD COUNT 13.7 TH/MM3 (4.0-11.0)
[2018-01-12 15:46] LABS: BILIRUBIN, URINE NEG (NEG); BLOOD, URINE NEG (NEG); GLUCOSE,URINE NEG (NEG); KETONE, URINE NEG (NEG); NITRITE,URINE NEG (NEG); SQUAMOUS EPITHELIAL CELL URINE 6 /hpf (0-5); URINE COLOR YELLOW (YELLW/STRAW); URINE LEUKOCYTE ESTERASE MOD (NEG)
[2018-01-12 15:49] LABS: ALKALINE PHOSPHATASE 78 U/L (45-117); TOTAL BILIRUBIN ADULT 0.3 MG/DL (0.2-1.0); TOTAL PROTEIN 8.5 GM/DL (6.4-8.2)
[2018-01-12 15:55] LABS: ALBUMIN 3.5 GM/DL (3.4-5.0); ALT (GPT) 23 U/L (10-53); AST (GOT) 13 U/L (15-37); BICARBONATE 26.3 MEQ/L (21.0-32.0); BLOOD UREA NITROGEN 9 MG/DL (7-18); CALCIUM 9.1 MG/DL (8.5-10.1); CHLORIDE 101 MEQ/L (98-107); CREATININE 0.73 MG/DL (0.50-1.00); GLOMERULAR FILTRATION RATE 117 ML/MIN (>89); GLUCOSE,RANDOM 91 MG/DL (74-106); SODIUM (NA) 136 MEQ/L (136-145)
[2018-01-12] MEDS ORDERED: SODIUM CHLOR 0.9% 1000 ML INJ 1,000 ML IV SCH (17:19)
[2018-01-12 17:23] VITALS: O2SAT 97
--- NOTE | 2018-01-12 17:28 | PD ---
HPI Chief Complaint: Abdominal Pain Time Seen by Provider: 17:01 Travel History International Travel<30 days: No Contact w/Intl Traveler<30days: No Traveled to known affect area: No History of Present Illness HPI 27 year female presents emergency department with worsening right lower quadrant pain since yesterday. Patient has had nausea but no vomiting. She denies urinary symptoms. She denies vaginal symptoms. She finished her last menstrual period on 29 December. Pain is now worsening and localized to the right anterior lower quadrant. Patient has no history of abdominal surgeries in the past. Patient has not eaten since yesterday. Pain is currently 8 out of 10 and worse with movement. Patient denies diarrhea. No history of Crohn's in the family or colitis. She has no known drug allergies. PFSH Past Medical History Anxiety: Yes Depression: Yes Cardiovascular Problems: Yes (HTN) High Cholesterol: Yes Diminished Hearing: No Deep Vein Thrombosis: Yes (L LEG ) Headaches: Yes (See EMR) Hypertension: Yes Neurologic: Yes Psychiatric: Yes (Reported hx of depression and anxiety) Respiratory: Yes (BRONCHITIS CHILD) Immunizations Current: Yes Migraines: Yes Sleep Apnea: Yes ?: Not : 3 Para: 2 Miscarriage: 0 : 0 Past Surgical History Section: Yes (x 2 ) Gynecologic Surgery: Yes Other Surgery: No (2 C-sections) Social History Alcohol Use: Yes (RARE) Tobacco Use: No Substance Use: No Allergies-Medications (Allergen,Severity, Reaction): Coded Allergies: No Known Allergies (Verified , 04/29/17) Reported Meds & Prescriptions Reported Meds & Active Scripts Active Ibuprofen 600 Mg Tab 600 Mg PO Q6H PRN Plus Iron 29-1 mg ( Vit-Iron Carbonyl) 1 Tab Tab 1 Tab PO DAILY Review of Systems Except as stated in HPI: all other systems reviewed are Neg General / Constitutional: Positive: Chills, No: Fever Eyes: No: Visual changes HENT: No: Headaches Cardiovascular: No: Chest Pain or Discomfort Respiratory: No: Shortness of Breath Gastrointestinal: Positive: Nausea, Abdominal Pain, Loss of Appetite, No: Vomiting, Diarrhea, Hematemesis, Hematochezia, Constipation, Changes in Bowel Habits, Indigestion, Dysphagia Genitourinary: No: Urgency, Frequency, Dysuria, Hematuria Musculoskeletal: No: Pain Skin: No Rash Neurologic: No: Weakness Psychiatric: No: Depression Endocrine: No: Polydipsia Hematologic/Lymphatic: No: Easy Bruising Physical Exam Narrative GENERAL: Patient appears in mild to moderate distress. She is obese. SKIN: Warm and dry. Normal color. Normal turgor. No diaphoresis. No rash HEAD: Atraumatic. Normocephalic. EYES: Pupils equal and round. No scleral icterus. No injection or drainage. ENT: No nasal bleeding or discharge. Mucous membranes pink and moist. Pharynx is clear. Airways patent NECK: Trachea midline. Supple nontender CARDIOVASCULAR: Regular rate and rhythm. RESPIRATORY: No accessory muscle use. Clear to auscultation. Breath sounds equal bilaterally. GASTROINTESTINAL: Abdomen soft, patient has point tenderness in the right lower quadrant with moderate rebound, nondistended. Patient has positive psoas sign on the right. No CVA tenderness. Bowel sounds are diminished. Hepatic and splenic margins not palpable. MUSCULOSKELETAL: Extremities without clubbing, cyanosis, or edema. No obvious deformities. NEUROLOGICAL: Awake and alert. No obvious cranial nerve deficits. Motor grossly within normal limits. Five out of 5 muscle strength in the arms and legs. Normal speech. PSYCHIATRIC: Appropriate mood and affect; insight and judgment normal. Data Data Last Documented VS Vital Signs Date Time Temp Pulse Resp B/P (MAP) Pulse Ox O2 Delivery O2 Flow Rate FiO2 01/12/18 17:23 97 Room Air 01/12/18 13:04 99.1 85 19 183/87 (119) Orders Orders Beta Hcg (Quant/Titer) (01/12/18 13:06) Complete Blood Count With Diff (01/12/18 13:06) Comprehensive Metabolic Panel (01/12/18 13:06) Lactic Acid (01/12/18 13:06) Urinalysis - C+S If Indicated (01/12/18 13:06) Ct Abd/Pel W Iv Contrast(Rout) (01/12/18 17:19) Iv Access Insert/Monitor (01/12/18 17:19) Ecg Monitoring (01/12/18 17:19) Oximetry (01/12/18 17:19) NPO (01/12/18 17:19) Morphine Inj (Morphine Inj) (01/12/18 17:30) Ondansetron Inj (Zofran Inj) (01/12/18 17:30) Metronidazole 500 Mg Inj (Flagyl 500 Mg (01/12/18 17:30) Sodium Chlor 0.9% 1000 Ml Inj (Ns 1000 M (01/12/18 17:19) Sodium Chloride 0.9% Flush (Ns Flush) (01/12/18 17:30) Piperacil-Tazo 3.375 Gm Premix (Zosyn 3. (01/12/18 17:30) Labs Laboratory Tests Test 01/12/18 14:31 White Blood Count 13.7 TH/MM3 Red Blood Count 5.26 MIL/MM3 Hemoglobin 12.4 GM/DL Hematocrit 38.8 % Mean Corpuscular Volume 73.8 FL Mean Corpuscular Hemoglobin 23.5 PG Mean Corpuscular Hemoglobin Concent 31.8 % Red Cell Distribution Width 16.6 % Platelet Count 257 TH/MM3 Mean Platelet Volume 7.4 FL Neutrophils (%) (Auto) 81.3 % Lymphocytes (%) (Auto) 10.8 % Monocytes (%) (Auto) 7.2 % Eosinophils (%) (Auto) 0.3 % Basophils (%) (Auto) 0.4 % Neutrophils # (Auto) 11.2 TH/MM3 Lymphocytes # (Auto) 1.5 TH/MM3 Monocytes # (Auto) 1.0 TH/MM3 Eosinophils # (Auto) 0.0 TH/MM3 Basophils # (Auto) 0.1 TH/MM3 CBC Comment DIFF FINAL Differential Comment Urine Color YELLOW Urine Turbidity CLEAR Urine pH 7.0 Urine Specific [place] 1.024 Urine Protein TRACE mg/dL Urine Glucose (UA) NEG mg/dL Urine Ketones NEG mg/dL Urine Occult Blood NEG Urine Nitrite NEG Urine Bilirubin NEG Urine Urobilinogen LESS THAN 2.0 MG/DL Urine Leukocyte Esterase MOD Urine RBC 1 /hpf Urine WBC 2 /hpf Urine Squamous Epithelial Cells 6 /hpf Microscopic Urinalysis Comment CULT NOT INDICATED Blood Urea Nitrogen 9 MG/DL Creatinine 0.73 MG/DL Random Glucose 91 MG/DL Total Protein 8.5 GM/DL Albumin 3.5 GM/DL Calcium Level 9.1 MG/DL Alkaline Phosphatase 78 U/L Aspartate Amino Transf (AST/SGOT) 13 U/L Alanine Aminotransferase (ALT/SGPT) 23 U/L Total Bilirubin 0.3 MG/DL Sodium Level 136 MEQ/L Potassium Level 4.6 MEQ/L Chloride Level 101 MEQ/L Carbon Dioxide Level 26.3 MEQ/L Anion Gap 9 MEQ/L Estimat Glomerular Filtration Rate 117 ML/MIN Lactic Acid Level 0.5 mmol/L Human Chorionic Gonadotropin, Quant LESS THAN 1 MIU/ML MDM Medical Decision Making Medical Screen Exam Complete: Yes Emergency Medical Condition: Yes Differential Diagnosis Right lower quadrant pain. Abdominal pain. Ovarian cyst. Appendicitis. Narrative Course High suspicion for appendicitis based on the patient's history and physical. Labs ordered in triage show leukocytosis of 13.7. 81.3% neutrophils noted. Chemistries unremarkable with a lactic acid of 0.5. HCG is less than 1 Urinalysis is unremarkable. IV access is obtained and the patient is given 2 mg morphine IV, 4 mg Zofran IV , 3.375 g Zosyn IV, and 500 mg metronidazole IV. Patient is kept n.p.o. CT of the abdomen is ordered with IV contrast. 1900 hrs., care of the patient is turned over to Hipolito Bradley PA-C. CT results are still pending Final disposition will be determined by him. Condition: Stable Dallas Rader Jan 12, 2018 17:28
[2018-01-12] MEDS ORDERED: MORPHINE SULFATE 4 MG/ML INJ IV PUSH ONE (17:30)
[2018-01-12] MEDS ORDERED: metroNIDAZOLE 500 MG INJ 100 ML IV ONE (17:30)
[2018-01-12] MEDS ORDERED: SODIUM CHLORIDE 0.9% FLUSH 10 ML FLUSH IV FLUSH PRN (17:30)
[2018-01-12] MEDS ORDERED: PIPERACIL-TAZO 3.375 GM PREMIX 50 ML IV ONE (17:30)
[2018-01-12] MEDS ORDERED: ONDANSETRON HCL 4 MG/2 ML VIAL IVP ONE (17:30)
--- NOTE | 2018-01-12 18:55 | RADRPT ---
EXAM DATE/TIME: 01/12/2018 18:18 [place] COMPARISON: No previous studies available for comparison. INDICATIONS : Abdomen pain. IV CONTRAST: 100 cc Omnipaque 350 (iohexol) IV ORAL CONTRAST: No oral contrast ingested. RADIATION DOSE: 14.41 CTDIvol (mGy) MEDICAL HISTORY : Hypertension. Deep venous thrombosis. SURGICAL HISTORY : Tubal ligation. ENCOUNTER: Initial ACUITY: 1 day PAIN SCALE: 5/10 LOCATION: Bilateral abdomen TECHNIQUE: Volumetric scanning of the abdomen and pelvis was performed. Using automated exposure control and ad justment of the mA and/or kV according to patient size, radiation dose was kept as low as reasonably achievable to obtain optimal diagnostic quality images. DICOM format image data is available electro nically for review and comparison. FINDINGS: LOWER LUNGS: The visualized lower lungs are clear. LIVER: Homogeneous density without lesion. There is no dilation of the biliary tree. No calcified gallston es. SPLEEN: Normal size without lesion. PANCREAS: Within normal limits. KIDNEYS: Normal in size and shape. There is no mass, stone or hydronephrosis. ADRENAL GLANDS: Within normal limits. VASCULAR: There is no aortic aneurysm. BOWEL/MESENTERY: The stomach, small bowel, and colon demonstrate no acute abnormality. There is no free intraperitone al air or fluid. ABDOMINAL WALL: Within normal limits. RETROPERITONEUM: There is no lymphadenopathy. BLADDER: No wall thickening or mass. REPRODUCTIVE: Within normal limits. INGUINAL: There is no lymphadenopathy or hernia. MUSCULOSKELETAL: Within normal limits for patient age. CONCLUSION: 1. No acute findings within the abdomen and pelvis. 1.9 cm left adnexal cyst. Trace free fluid in the pelvis. Mild constipation. Small hiatal hernia. Eric cMdonnell MD on January 12, 2018 at 18:46 Board Certified Radiologist. This report was verified electronically.
--- NOTE | 2018-01-12 19:11 | PD ---
Physical Exam Time Seen by Provider: 19:09 Data Data Last Documented VS Vital Signs Date Time Temp Pulse Resp B/P (MAP) Pulse Ox O2 Delivery O2 Flow Rate FiO2 01/12/18 17:23 97 Room Air 01/12/18 13:04 99.1 85 19 183/87 (119) Orders Orders Beta Hcg (Quant/Titer) (01/12/18 13:06) Complete Blood Count With Diff (01/12/18 13:06) Comprehensive Metabolic Panel (01/12/18 13:06) Lactic Acid (01/12/18 13:06) Urinalysis - C+S If Indicated (01/12/18 13:06) Ct Abd/Pel W Iv Contrast(Rout) (01/12/18 17:19) Iv Access Insert/Monitor (01/12/18 17:19) Ecg Monitoring (01/12/18 17:19) Oximetry (01/12/18 17:19) NPO (01/12/18 17:19) Morphine Inj (Morphine Inj) (01/12/18 17:30) Ondansetron Inj (Zofran Inj) (01/12/18 17:30) Metronidazole 500 Mg Inj (Flagyl 500 Mg (01/12/18 17:30) Sodium Chlor 0.9% 1000 Ml Inj (Ns 1000 M (01/12/18 17:19) Sodium Chloride 0.9% Flush (Ns Flush) (01/12/18 17:30) Piperacil-Tazo 3.375 Gm Premix (Zosyn 3. (01/12/18 17:30) Gc And Chlamydia Pcr (01/12/18 19:38) Wet Prep Profile (01/12/18 19:38) Azithromycin Powd Pack (Zithromax Powd P (01/12/18 20:00) Ceftriaxone Inj (Rocephin Inj) (01/12/18 20:00) Lidocaine 1% Inj (50 Ml) (Xylocaine 1% I (01/12/18 20:00) Metronidazole (Flagyl) (01/12/18 20:30) Ed Discharge Order (01/12/18 20:25) Labs Laboratory Tests Test 01/12/18 14:31 01/12/18 19:58 White Blood Count 13.7 TH/MM3 Red Blood Count 5.26 MIL/MM3 Hemoglobin 12.4 GM/DL Hematocrit 38.8 % Mean Corpuscular Volume 73.8 FL Mean Corpuscular Hemoglobin 23.5 PG Mean Corpuscular Hemoglobin Concent 31.8 % Red Cell Distribution Width 16.6 % Platelet Count 257 TH/MM3 Mean Platelet Volume 7.4 FL Neutrophils (%) (Auto) 81.3 % Lymphocytes (%) (Auto) 10.8 % Monocytes (%) (Auto) 7.2 % Eosinophils (%) (Auto) 0.3 % Basophils (%) (Auto) 0.4 % Neutrophils # (Auto) 11.2 TH/MM3 Lymphocytes # (Auto) 1.5 TH/MM3 Monocytes # (Auto) 1.0 TH/MM3 Eosinophils # (Auto) 0.0 TH/MM3 Basophils # (Auto) 0.1 TH/MM3 CBC Comment DIFF FINAL Differential Comment Urine Color YELLOW Urine Turbidity CLEAR Urine pH 7.0 Urine Specific [place] 1.024 Urine Protein TRACE mg/dL Urine Glucose (UA) NEG mg/dL Urine Ketones NEG mg/dL Urine Occult Blood NEG Urine Nitrite NEG Urine Bilirubin NEG Urine Urobilinogen LESS THAN 2.0 MG/DL Urine Leukocyte Esterase MOD Urine RBC 1 /hpf Urine WBC 2 /hpf Urine Squamous Epithelial Cells 6 /hpf Microscopic Urinalysis Comment CULT NOT INDICATED Blood Urea Nitrogen 9 MG/DL Creatinine 0.73 MG/DL Random Glucose 91 MG/DL Total Protein 8.5 GM/DL Albumin 3.5 GM/DL Calcium Level 9.1 MG/DL Alkaline Phosphatase 78 U/L Aspartate Amino Transf (AST/SGOT) 13 U/L Alanine Aminotransferase (ALT/SGPT) 23 U/L Total Bilirubin 0.3 MG/DL Sodium Level 136 MEQ/L Potassium Level 4.6 MEQ/L Chloride Level 101 MEQ/L Carbon Dioxide Level 26.3 MEQ/L Anion Gap 9 MEQ/L Estimat Glomerular Filtration Rate 117 ML/MIN Lactic Acid Level 0.5 mmol/L Human Chorionic Gonadotropin, Quant LESS THAN 1 MIU/ML Clue Cells (Wet Prep) NONE SEEN Vaginal Trichomonas (Wet Prep) PRESENT Vaginal Yeast (Wet Prep) NONE SEEN MDM Medical Record Reviewed: Yes Supervised Visit with APOLLO: No Narrative Course Please see previous providers notes for complete history of present illness. I assumed care of this patient pending CT imaging. Briefly this is a 27-year-old female who has had right lower quadrant pain for 3 days. She describes it as an aching pain which is constant. Reports one episode of emesis today. She reports that she had a similar pain for several hours a few months ago which resolved. She reports that she has 2 new sexual partners in the last month. She denies dysuria, vaginal bleeding or discharge, diarrhea or constipation, flank pain. CT abdomen and pelvis reveals CONCLUSION: 1. No acute findings within the abdomen and pelvis. 1.9 cm left adnexal cyst. Trace free fluid in the pelvis. Mild constipation. Small hiatal hernia. CBC reveals a WBC count of 13.7. Given the history of multiple sexual partners which are new, right lower quadrant pain, leukocytosis, plan is for pelvic examination. On pelvic examination there is copious mucopurulent yellow vaginal discharge. There is no cervical motion tenderness but there is right adnexal tenderness. She is positive for trichomonas. The patient will be treated for Trichomonas with 2 g of Flagyl. She will be given Rocephin and azithromycin for Chlamydia gonorrhea coverage pending those results. She is stable for discharge. Diagnosis Primary Impression: Abdominal pain Additional Impression: Trichomonas infection Referrals: [facility]. Additional Instruction: Follow-up at the health department for further STD testing. Have a partners tested and treated at the health department prior to further sexual contact. Return for any emergent medical conditions. Med/Other Pt SpecificInfo: No Change to Meds Disposition: 01 DISCHARGE HOME Condition: Stable Hipolito Bradley Jan 12, 2018 19:11
[2018-01-12] MEDS ORDERED: cefTRIAXone 250 MG VIAL IM ONE (20:00)
[2018-01-12] MEDS ORDERED: AZITHROMYCIN PWD FOR SUSP 1 GM PACKET PO ONE (20:00)
[2018-01-12] MEDS ORDERED: LIDOCAINE HCL 1% 50 ML VIAL IM ONE (20:00)
[2018-01-12] MEDS ORDERED: metroNIDAZOLE 500 MG TAB PO ONE (20:30)
[2018-01-12] MEDS ORDERED: IOHEXOL 350 MG/ML 10 ML VIAL (for RAD DIAG) IVCONTRAST ONE (23:12)
== END 2018-01-12 22:04 | disposition home or self-care (01) ==
LOC: NED 12:23 → NEPD 22:04
DX: A59.9 Trichomoniasis, unspecified (principal)
CPT/HCPCS: 74177; 80053; 81001; 83605; 84702; 85025; 87210; 87491; 87591; 96365; 96367; 96372; 96375; 99284; J0696; J2270; J2405; J2543; J7030; Q9967